=== PATIENT | male | born 1980 | race Caucasian/White ===

== ENCOUNTER 2017-03-16 17:16 | Emergency (ER) | payer OTHER ==
[~2017-03-16] VITALS: Ht 180.3 cm; Wt 85.3 kg
[2017-03-16 18:44] LABS: HEMATOCRIT 36.6 % (38.0-50.0); MCH 28.4 PG (29.0-34.0); MCHC 33.3 G/DL (30.0-36.0); MCV 85.3 FL (86-99); MEAN PLAT.VOLUME 9.1 uM^3 (9.0-12.4); PLATELET COUNT 276 K/uL (156-360); RBC DIS.WIDTH-CV 11.9 % (11.8-14.6); RBC DIS.WIDTH-SD 37.3 % (39-53); RED BLOOD COUNT 4.29 M/uL (4.00-5.50)
[2017-03-16 18:54] LABS: CHLORIDE 102 mEq/L (99-109); POTASSIUM 4.2 mEq/L (3.7-5.4); SODIUM 135 mEq/L (136-147)
[2017-03-16 18:55] LABS: GLUCOSE 237 mg/dL (70-99)
[2017-03-16 18:57] LABS: ANION GAP 7 MEQ/L (2-14)
[2017-03-16 18:59] LABS: GFR ESTIMATE (CALCULATED) > 59 mL/min/
[2017-03-16 19:00] LABS: UREA NITROGEN (BUN) 15 mg/dL (9-23)
[2017-03-16 19:21] LABS: ADD MIUA? YES; BILIRUBIN NEGATIVE; BLOOD NEGATIVE; COLOR AMBER ((YELLOW)); GLUCOSE (STRIP) 50; KETONES 5; LEUKOCYTES NEGATIVE; NITRITE NEGATIVE; PROTEIN (STRIP) 30; UROBILINOGEN 0.2 MG/DL (0.2-1.0)
[2017-03-16 19:24] LABS: BACTERIA RARE /HPF; EPITHELIAL CELLS RARE /HPF; MUCUS TRACE /LPF; UCUL ADDED? NO; WHITE BLOOD CELLS 0-5 /HPF (0-5)
[2017-03-16 21:00] LABS: POINT-OF-CARE METER ID UU14100415
[2017-03-16 21:53] VITALS: BP 147/92
== END 2017-03-16 21:56 ==
LOC: EME 17:16
PROVIDERS: Emergency Medicine
DX: R10.9 Unspecified abdominal pain (principal); F17.200 Nicotine dependence, unspecified, uncomplicated
CPT/HCPCS: 76870; 80048; 81003; 82948; 85027; 93975; 99281; 99284; J1885; J7030